=== PATIENT | female | born 1970 | race Caucasian/White ===

== ENCOUNTER → 2017-01-24 | Outpatient (CLI) | payer OTHER ==
[~2017-01-24] MED LIST: CALCTAB65 PO; DALF10TA PO; DTRSR5 PO; LEVOTAB PO; MELA1TAB5 PO; METH5TAB5 PO; MULTTAB58 PO; NATA1INJ IV; OMEP20TA PO; SERT1TAB72 PO
[2017-01-24 18:18] LABS: THYROID STIMULATING HORMONE 1.18 uIu/ml (0.300-4.500)
== END | disposition home or self-care (01) ==
LOC: C.LABMFLN 11:17
PROVIDERS: ATTEND Internal Medicine Endocrinology, Diabetes & Metabolism
DX: E05.00 Thyrotoxicosis with diffuse goiter without thyrotoxic crisis or storm (principal)

== ENCOUNTER → 2017-04-20 | Outpatient (CLI) | payer OTHER ==
[2017-04-20 19:40] LABS: THYROID STIMULATING HORMONE 1.42 uIu/ml (0.300-4.500)
== END | disposition home or self-care (01) ==
LOC: C.LABMFLN 12:01
PROVIDERS: ATTEND Physician Assistant
DX: E05.00 Thyrotoxicosis with diffuse goiter without thyrotoxic crisis or storm (principal)

== ENCOUNTER 2018-02-24 11:48 | Emergency (ER) | payer OTHER ==
[2018-02-24 12:00] VITALS: TEMP 36.9; O2SAT 95
[2018-02-24] MEDS ORDERED: SODIUM CHLORIDE 0.9% 1000ML 500 ML IV ONE (12:11)
--- NOTE | 2018-02-24 12:12 | EMERGENCY ROOM VISIT NOTE ---
History Report prepared by Antonioibgio: Silvana Dyer Under the Supervision of: Dr. Seth Yee M.D. First contact with patient: 12:02 Chief Complaint: RESPIRATORY PROBLEMS Stated Complaint: PNEUMONIA Nursing Triage Summary: pt presents to room a04 via als from home. pt has hx of ms and is bed bound. pt has been admitted to [facility] twice in in february. pt reports continued decreased appetite, diarrhea and wheezing. pt denies any shortness of breath or pain. father at bedside with pt. History of Present Illness The patient is a 47 year old female who presents to the Emergency Room with complaints of possible respiratory problems. She was brought to the ED via EMS and is accompanied by her Father. The patient has a history of MS and is wheelchair bound. She has been treated at [facility] twice so far this month for pneumonia. Her father states the MS is now affecting her swallowing and she is at increased risk for choking. The patient had a traumatic head injury this past July and was on life support at [facility] for 6 days. She has not fully recovered from the injury. She can move her toes, but is not strong enough to walk. 2 days ago, she followed up with her PCP and was told her blood work shows sepsis. She was not placed on antibiotics, but her Father believes she is still on Cefdinir from [facility]. The patent denies any shortness of breath. She has been coughing. She denies any urinary symptoms but her Father reports he noticed blood in her underwear this morning. The patient does admit to "a lot of diarrhea" recently. She did not eat yet this morning. She takes daily medication to keep her from having a menstrual cycle. 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 A total of 10 systems reviewed and were otherwise negative. Past Medical & Surgical Medical Problems: (1) MS (multiple sclerosis) Family History Cancer Diabetes mellitus Heart disease Hypertension Lung disease Seizures Social History Smoking Status: Never Smoker Alcohol Use: none Drug Use: none Marital Status: Housing Status: lives with family Occupation Status: unemployed Current/Historical Medications Scheduled Baclofen (Baclofen), 1 TAB PO QID Calcium Carbonate-Vitamin D (Calcium 500 + D), 1 TAB PO QAM Carbamide Peroxide (Otic) (Debrox), 5 DROPS OTB BID Cefdinir (Omnicef), 300 MG PO Q12H Levetiracetam (Keppra), 1 TAB PO BID Levonorgestrel & Eth Estradiol (Levora 0.15-28), 1 TAB PO DAILY Melatonin (Kp Melatonin), 1 TAB PO HS Methimazole (Tapazole), 2.5 MG PO BID Metoprolol Tartrate (Lopressor) (Lopressor), 12.5 MG PO BID Multiple Vitamin (Multivitamin), 1 TAB PO QAM Ranitidine (Zantac), 1 TAB PO BID Sertraline (Zoloft), 100 MG PO DAILY Sertraline Hcl (Zoloft), 25 MG PO QAM Scheduled PRN Ibuprofen (Motrin), 600 MG PO Q6H PRN for Pain Allergies Coded Allergies: Fingolimod (Verified Allergy, Intermediate, rash, 02/24/18) Methylprednisolone (Verified Allergy, Intermediate, rash, 02/24/18) Physical Exam Vital Signs Date Time Temp Pulse Resp B/P (MAP) Pulse Ox O2 Delivery O2 Flow Rate FiO2 02/24/18 16:06 74 122/74 98 02/24/18 14:32 71 16 104/60 98 Room Air 02/24/18 13:44 72 16 113/63 98 Room Air 02/24/18 13:00 71 16 114/80 96 Room Air 02/24/18 12:03 73 02/24/18 12:00 36.9 73 18 105/77 95 Room Air 02/24/18 12:00 95 Room Air 02/24/18 12:00 95 Room Air Physical Exam GENERAL: Patient is in no acute distress. HEENT: No acute trauma, normocephalic atraumatic, mucous membranes moist, no nasal congestion, no scleral icterus. NECK: No stridor, no adenopathy, no meningismus, trachea is midline. LUNGS: Clear to auscultation bilaterally, no wheeze, no rhonchi, breath sounds equal. HEART: Without murmurs gallops or rubs, regular rate and rhythm. ABDOMEN: Soft, nontender, bowel sounds positive, no hernias, no peritonitis. EXTREMITIES: No cyanosis or edema, full range of motion of all the joints without pain or difficulty, no signs for acute trauma. NEUROLOGIC: Oriented x 3, no acute motor or sensory deficits, no focal weakness. Diffuse weakness consistent with MS. SKIN: No rash, no jaundice, no diaphoresis. Medical Decision & Procedures ER Provider Diagnostic Interpretation: Radiology results as stated below per my review and radiologist interpretation: CHEST ONE VIEW PORTABLE CLINICAL HISTORY: Sepsis COMPARISON STUDY: 08/30/2015 FINDINGS: The cardiac and mediastinal contours are normal. There is no evidence of focal pulmonary consolidation. There is no evidence of failure. No pleural effusions are visualized. A right-sided central venous catheter is again visualized. IMPRESSION: No active disease in the chest. Electronically signed by: Houston Sifuentes M.D. 02/24/2018 12:35 PM Laboratory Results 02/24/18 13:00 Red Blood Count 5.18, Mean Corpuscular Volume 83.2, Mean Corpuscular Hemoglobin 28.4, Mean Corpuscular Hemoglobin Concent 34.1, Mean Platelet Volume 9.2, Neutrophils (%) (Auto) 72.7, Lymphocytes (%) (Auto) 20.8, Monocytes (%) (Auto) 5.5, Eosinophils (%) (Auto) 0.4, Basophils (%) (Auto) 0.1, Neutrophils # (Auto) 5.67, Lymphocytes # (Auto) 1.62, Monocytes # (Auto) 0.43, Eosinophils # (Auto) 0.03, Basophils # (Auto) 0.01 02/24/18 13:00 Test 02/24/18 13:00 02/24/18 13:40 02/24/18 13:59 White Blood Count 7.80 K/uL (4.8-10.8) Red Blood Count 5.18 M/uL (4.2-5.4) Hemoglobin 14.7 g/dL (12.0-16.0) Hematocrit 43.1 % (37-47) Mean Corpuscular Volume 83.2 fL (80-100) Mean Corpuscular Hemoglobin 28.4 pg (25-34) Mean Corpuscular Hemoglobin Concent 34.1 g/dl (32-36) Platelet Count 381 K/uL (130-400) Mean Platelet Volume 9.2 fL (7.4-10.4) Neutrophils (%) (Auto) 72.7 % Lymphocytes (%) (Auto) 20.8 % Monocytes (%) (Auto) 5.5 % Eosinophils (%) (Auto) 0.4 % Basophils (%) (Auto) 0.1 % Neutrophils # (Auto) 5.67 K/uL (1.4-6.5) Lymphocytes # (Auto) 1.62 K/uL (1.2-3.4) Monocytes # (Auto) 0.43 K/uL (0.11-0.59) Eosinophils # (Auto) 0.03 K/uL (0-0.5) Basophils # (Auto) 0.01 K/uL (0-0.2) RDW Standard Deviation 52.3 fL (36.4-46.3) RDW Coefficient of Variation 17.1 % (11.5-14.5) Immature Granulocyte % (Auto) 0.5 % Immature Granulocyte # (Auto) 0.04 K/uL (0.00-0.02) Prothrombin Time 9.6 SECONDS (9.0-12.0) Prothromb Time International Ratio 0.9 (0.9-1.1) Activated Partial Thromboplast Time 27.2 SECONDS (21.0-31.0) Partial Thromboplastin Ratio 1.0 Anion Gap 9.0 mmol/L (3-11) Estimated GFR () 92.0 Estimated GFR (Non- 79.3 BUN/Creatinine Ratio 10.0 (10-20) Calcium Level 8.8 mg/dl (8.5-10.1) Magnesium Level 2.3 mg/dl (1.8-2.4) Total Bilirubin 0.3 mg/dl (0.2-1) Aspartate Amino Transf (AST/SGOT) 44 U/L (15-37) Alanine Aminotransferase (ALT/SGPT) 52 U/L (12-78) Alkaline Phosphatase 92 U/L (45-117) Total Protein 7.7 gm/dl (6.4-8.2) Albumin 3.2 gm/dl (3.4-5.0) Globulin 4.5 gm/dl (2.5-4.0) Albumin/Globulin Ratio 0.7 (0.9-2) Thyroid Stimulating Hormone (TSH) 1.760 uIu/ml (0.300-4.500) Urine Color DK YELLOW Urine Appearance CLEAR (CLEAR) Urine pH 8.0 (4.5-7.5) Urine Specific Rogers 1.019 (1.000-1.030) Urine Protein NEG (NEG) Urine Glucose (UA) NEG (NEG) Urine Ketones NEG (NEG) Urine Occult Blood NEG (NEG) Urine Nitrite NEG (NEG) Urine Bilirubin NEG (NEG) Urine Urobilinogen NEG (NEG) Urine Leukocyte Esterase SMALL (NEG) Urine WBC (Auto) 5-10 /hpf (0-5) Urine RBC (Auto) 0-4 /hpf (0-4) Urine Hyaline Casts (Auto) 1-5 /lpf (0-5) Urine Epithelial Cells (Auto) 5-10 /lpf (0-5) Urine Bacteria (Auto) NEG (NEG) Urine Renal Epithelial Cells /lpf (0-5) Urine Mucus PRESENT (NONE PRSENT) Lactic Acid Level 1.3 mmol/L (0.4-2.0) Laboratory results reviewed by me. Medications Administered Medications (Trade) Dose Ordered Sig/Nena Route Start Time Stop Time Status Last Admin Dose Admin Sodium Chloride 500 ml @ 999 mls/hr Q31M ONCE IV 02/24/18 12:11 02/24/18 12:41 DC 02/24/18 13:55 999 MLS/HR Heparin Sodium (Porcine) (Heparin 100 Unit/ml 5ml Flush) 5 ml STK-MED ONCE .ROUTE 02/24/18 16:00 02/24/18 16:01 DC 02/24/18 16:05 5 ML ED Course 1204: The patient was evaluated in room A4. A complete history and physical exam was performed. 1211: NSS 500 ml @ 999 mls/hr IV. 1440: I reevaluated the patient. She is feeling well and is ready to go home. I discussed her results and discharge instructions and she verbalized complete understanding and agreement. 1540: I spoke with the patients Father. I updated him on her results and discharge instructions and he verbalized complete understanding and agreement. Medical Decision The differential diagnoses considered include sepsis, failed outpatient treatment, pneumonia, UTI, dehydration, electrolyte imbalance, cellulitis and C- Diff colitis. There is no leukocytosis or concerning anemia. No significant electrolyte abnormality, kidney failure or hepatitis. Urinalysis does not show infection. Lactic acid level is not elevated making sepsis less likely. Chest film does not show pneumonia. On exam, the patient was not febrile or toxic. She was in no significant distress. The patient received IV saline, she is resting comfortably. There is no evidence for sepsis, no findings to suggest continued pneumonia or UTI. The patient and family were reassured. The patient is being discharged to continue her meds as prescribed. She will follow with her doctors office and return here for worsening symptoms. Medication Reconcilliation Current Medication List: was personally reviewed by me Blood Pressure Screening Patient's blood pressure: Normal blood pressure Blood pressure disposition: Did not require urgent referral Impression Primary Impression: Weakness Additional Impression: Concern about infectious disease without diagnosis Scribe Attestation The scribe's documentation has been prepared under my direction and personally reviewed by me in its entirety. I confirm that the note above accurately reflects all work, treatment, procedures, and medical decision making performed by me. Departure Information Dispostion Home / Self-Care Referrals No Doctor, Assigned (PCP) Patient Instructions My [facility] Additional Instructions continue your care as your doctors direct all meds as before no findings today to suggest urinary infection, pneumonia no finding today to suggest sepsis see your doctor sunday or sunday for a recheck return if worsening Problem Qualifiers
--- NOTE | 2018-02-24 12:37 | DIAGNOSTIC IMAGING REPORT ---
CHEST ONE VIEW PORTABLE CLINICAL HISTORY: Sepsis COMPARISON STUDY: 08/30/2015 FINDINGS: The cardiac and mediastinal contours are normal. There is no evidence of focal pulmonary consolidation. There is no evidence of failure. No pleural effusions are visualized.[ A right-sided central venous catheter is again visualized. IMPRESSION: No active disease in the chest. Electronically signed by: Houston Sifuentes M.D. 02/24/2018 12:35 PM Dictated Date/Time: 02/24/2018 12:35 PM
[2018-02-24] MEDS ORDERED: IBUP-1450 PO (12:58)
[2018-02-24] MEDS ORDERED: SERT-234 PO (12:58)
[2018-02-24] MEDS ORDERED: METO25TA56 PO (12:58)
[2018-02-24] MEDS ORDERED: CEFD300C2 PO (12:58)
[2018-02-24] MEDS ORDERED: [UNRECOGNIZED DRUG - CODE] PO (12:58)
[2018-02-24] MEDS ORDERED: CARB1SOL8 OTB (12:58)
[2018-02-24] MEDS ORDERED: RANI150T85 PO (12:58)
[2018-02-24] MEDS ORDERED: KPP/1000 PO (12:58)
[2018-02-24] MEDS ORDERED: LRS10 PO (12:58)
[2018-02-24 13:22] LABS: BASO % 0.1 %; BASO ABS # 0.01 K/uL (0-0.2); EOS % 0.4 %; EOS ABS # 0.03 K/uL (0-0.5); HEMATOCRIT 43.1 % (37-47); HEMOGLOBIN 14.7 g/dL (12.0-16.0); IG# 0.04 K/uL (0.00-0.02); LYMPH % 20.8 %; LYMPH ABS # 1.62 K/uL (1.2-3.4); MEAN CELL VOLUME 83.2 fL (80-100); MEAN CORPUSCULAR HEMOGLOBIN 28.4 pg (25-34); MEAN CORPUSCULAR HGB CONC 34.1 g/dl (32-36); MEAN PLATELET VOLUME 9.2 fL (7.4-10.4); MONO % 5.5 %; MONO ABS # 0.43 K/uL (0.11-0.59); NEUT % 72.7 %; NEUT ABS # 5.67 K/uL (1.4-6.5); PLATELET COUNT 381 K/uL (130-400); RED CELL DISTRIBUTION WIDTH CV 17.1 % (11.5-14.5); RED CELL DISTRIBUTION WIDTH SD 52.3 fL (36.4-46.3)
[2018-02-24 13:30] LABS: INR 0.9 (0.9-1.1); PTT PATIENT 27.2 SECONDS (21.0-31.0)
[2018-02-24 13:33] LABS: ALBUMIN 3.2 gm/dl (3.4-5.0); ALT/SGPT 52 U/L (12-78); BLOOD UREA NITROGEN 9 mg/dl (7-18); CALCIUM 8.8 mg/dl (8.5-10.1); CARBON DIOXIDE 25 mmol/L (21-32); CREATININE 0.88 mg/dl (0.60-1.20); GLUCOSE 77 mg/dl (70-99); POTASSIUM 3.9 mmol/L (3.5-5.1); SODIUM 137 mmol/L (136-145)
[2018-02-24 13:44] LABS: ALKALINE PHOSPHATASE 92 U/L (45-117); AST/SGOT 44 U/L (15-37); TOTAL PROTEIN 7.7 gm/dl (6.4-8.2)
[2018-02-24 16:06] VITALS: BP 122/74; PULSE 74; O2SAT 98
== END 2018-02-24 16:07 | disposition home or self-care (01) ==
LOC: EDBD 11:48 → C.EDA 11:49
DX: R53.1 Weakness (principal); R05 Cough; G35 Multiple sclerosis; Z79.899 Other long term (current) drug therapy; Z88.8 Allergy status to other drugs, medicaments and biological substances; Z99.3 Dependence on wheelchair